=== PATIENT | male | born 1970 | race African-American/Black ===

== ENCOUNTER 2021-11-16 23:22 | Emergency (ER) | payer SELFPAY ==
[~2021-11-16] VITALS: Ht 182.9 cm; Wt 90.7 kg
--- NOTE | 2021-11-17 00:36 | NUR ---
DR. LAW BO AT PT'S BEDSIDE FOR EVAL
--- NOTE | 2021-11-17 00:41 | NUR ---
EMT AT BEDSIDE FOR WOUND CLEANING
--- NOTE | 2021-11-17 00:50 | NUR ---
DR SABA AT BEDSIDE FOR SUTURES.
--- NOTE | 2021-11-17 01:22 | NUR ---
PT RETURNED TO ER BED [address]
--- NOTE | 2021-11-17 02:51 | NUR ---
Patient discharged to home in stable condition. Written and verbal after care instructions given. Patient verbalizes understanding of instruction.
[2021-11-17 02:52] VITALS: BP 128/82
== END 2021-11-17 02:52 | disposition home or self-care (01) ==
LOC: ER 23:26
DX: S01.112A Laceration without foreign body of left eyelid and periocular area, initial encounter (principal); R51.9 Headache, unspecified; Y04.0XXA Assault by unarmed brawl or fight, initial encounter; Y93.89 Activity, other specified; Y92.89 Other specified places as the place of occurrence of the external cause; Y99.8 Other external cause status
CPT/HCPCS: 99284; 72125; 12011; 70450; A6403